=== PATIENT | female | born 1990 | race Caucasian/White ===

== ENCOUNTER → 2021-10-18 | Outpatient (CLI) | payer BC | LOC: COL.RAD 12:27 | DX: Z31.41 Encounter for fertility testing (principal) | CPT/HCPCS: Q9967 ==

== ENCOUNTER 2022-10-23 06:42 | Inpatient (IN) | payer BC ==
[~2022-10-23] VITALS: Ht 152.4 cm; Wt 105.5 kg
[2022-10-23] VITALS (61 sets, daily range): BP systolic 73–194; BP diastolic 32–93; PULSE 78–108; TEMP 97.6–98.3
[~2022-10-23 06:42] MED LIST: MUCINEX 60600 MG/TA1 PO; PNV-SELECT1 TAB PO; TUMS500 MG; TYLENOL 325MG325 MG; ZYRTEC 10MG10 MG PO
--- NOTE | 2022-10-23 06:50 | NUR ---
0650: PT AMBULATORY TO UNIT WITH SPOUSE. PT GOES TO LR6, CHANGES INTO CLEAN GOWN. PT HOOKED UP TO FHR MONITOR/TOCO. PT DENIES ANY LEAKING OF FLUID, VAGINAL BLEEDING, REGULAR CONTRACTIONS, OR DECREASED MOVEMENT. POC DISCUSSED, PT VERBALIZES UNDERSTANDING. CALL LIGHT WITHIN REACH.
[2022-10-23 08:05] LABS: BASO % 0.3 % (0.0-2.0); EOS % 0.3 % (0.0-4.0); GRAN # 5.4 K/mm3 (1.4-6.5); GRAN % 70.2 % (42.2-75.2); HEMOGLOBIN 10.2 g/dl (12.5-16.0); LYMPH # 1.7 K/mm3 (1.2-3.4); LYMPH % 22.5 % (20.0-51.0); MEAN CELL VOLUME 88 fl (80.0-100.0); MEAN CORPUSCULAR HEMOGLOBIN 30 pg (27-31); MEAN CORPUSCULAR HGB CONC 34 g/dl (33.0-37.0); MEAN PLATELET VOLUME 9.9 fl (7.4-10.4); MONO # 0.5 K/mm3 (0.1-0.6); MONO % 6.4 % (1.7-9.3); PLATELET COUNT 202 K/mm3 (130-400); RED BLOOD COUNT 3.44 M/mm3 (4.10-5.30); REDCELL DISTRIBUTION WIDTH-CV 14.2 % (11.5-14.5)
[2022-10-23 08:07] LABS: HEMATOCRIT 30.3 % (37.0-47.0)
[2022-10-23 08:21] LABS: ALBUMIN 2.5 gm/dL (3.5-5.0); BILIRUBIN,TOTAL 0.3 mg/dL (0.2-1.2); CALCIUM 8.6 mg/dL (8.4-10.2); CREATININE, serum 0.79 mg/dL (0.57-1.11); POTASSIUM 3.7 mmol/L (3.5-4.5); TOTAL PROTEIN 5.9 gm/dL (6.2-8.1)
--- NOTE | 2022-10-23 08:30 | NUR ---
0830: DR. MURRIETA AT BEDSIDE WITH PT. BEDSIDE ULTRASOUND COMPLETED, BABY POSITION IS VERTEX. SVE COMPLETED / PER DR. POWER WITH AROM. FHR REVIWED AND POC REVIEWED. PT VERABILZES UNDERSTANDING.
[2022-10-23 10:26] LABS: COLLECTION METHOD CLEAN CATCH
[2022-10-23 10:46] LABS: GRANULAR CAST >12 /lpf (0); MUCOUS Present (NOT PRESENT); URINE BACTERIA None Seen /hpf (NONE SEEN)
[2022-10-23 10:49] LABS: URINE APPEARANCE Clear (CLEAR/HAZY); URINE BLOOD Negative (NEGATIVE); URINE COLOR Yellow (YELLOW); URINE GLUCOSE Negative (NEGATIVE); URINE KETONE Negative (NEGATIVE); URINE NITRATE Negative (NEGATIVE); URINE PROTEIN(semi-quant) 2+ (NEGATIVE); URINE UROBILINOGEN 0.2 (NEGATIVE)
--- NOTE | 2022-10-23 12:35 | NUR ---
1235: DR. POWER AT THE BEDSIDE WITH PT. SVE COMPLETED 2-/-[address] POWER. ELEVATED BLOOD PRESSURES REVIWED. ORDERS FOR MAG GIVEN, POC REVIWED. PT VERABILZES UNDERSTANDING.
--- NOTE | 2022-10-23 17:10 | NUR ---
1710: DR. POWER AT THE BESIDE WITH THE PATIENT. SVE COMPLETED, /-[address] POWER. POC DISCUSSED AND PT VERBALIZES UNDERSTANDING.
--- NOTE | 2022-10-23 18:15 | NUR ---
RCVD REPORT FROM KENIA SAMSON AND KENIA SANDOVAL. PT IS ON MAG AND PITOCIN. BPS ARE STILL ELEVATED. AT THIS TIME THE PATIENT IS REQUESTING AN EPIDURAL. ANDREINA RENEE NOTIFIED AND ON HER WAY.
--- NOTE | 2022-10-23 18:40 | NUR ---
1834: PT SITTING UP ON BEDSIDE. ANDREINA RENEE IN ROOM, PROCEDURE EXPLAINED AND QUESTIONS ASKED AND ANSWERED, PT VERBALIZED UNDERSTANDING. 1840: PT PREPPED AND SS ADMINISTERED. PT TOLERATATED PROCEDURE VERY WELL. DIFFICULTY TRACING HEART TONES DURING PROCEDURE DUE TO MOTHERS POSITIONING AND HABITUS.
--- NOTE | 2022-10-23 20:15 | NUR ---
DIFFICULTY TRACING CONTRACTION PATTERN D/T PATIENT POSITIONING.
[2022-10-24] VITALS (49 sets, daily range): BP systolic 104–161; BP diastolic 54–94; PULSE 78–115; TEMP 97.7–98.2
[2022-10-25 02:43] VITALS: BP 148/85; PULSE 96; TEMP 98.2
[2022-10-25 05:54] LABS: BASO % 0.2 % (0.0-2.0); EOS % 0.2 % (0.0-4.0); GRAN % 73.8 % (42.2-75.2); LYMPH % 16.6 % (20.0-51.0); MEAN CELL VOLUME 88 fl (80.0-100.0); MEAN CORPUSCULAR HGB CONC 33 g/dl (33.0-37.0); MEAN PLATELET VOLUME 10.1 fl (7.4-10.4); MONO # 1.1 K/mm3 (0.1-0.6); MONO % 8.7 % (1.7-9.3); PLATELET COUNT 202 K/mm3 (130-400); RED BLOOD COUNT 3.01 M/mm3 (4.10-5.30); REDCELL DISTRIBUTION WIDTH-CV 14.6 % (11.5-14.5)
[2022-10-25 05:57] LABS: HEMATOCRIT 26.5 % (37.0-47.0); HEMOGLOBIN 8.8 g/dl (12.5-16.0); MEAN CORPUSCULAR HEMOGLOBIN 29 pg (27-31)
[2022-10-25 06:06] LABS: ALBUMIN 1.9 gm/dL (3.5-5.0); BILIRUBIN,TOTAL 0.1 mg/dL (0.2-1.2); CALCIUM 8.2 mg/dL (8.4-10.2); CREATININE, serum 0.74 mg/dL (0.57-1.11); POTASSIUM 4.3 mmol/L (3.5-4.5); TOTAL PROTEIN 4.8 gm/dL (6.2-8.1)
[2022-10-25] MEDS ORDERED: ROXICODONE 55 MG/TAB PO (07:12)
[2022-10-25] MEDS ORDERED: IBU600 MG PO (07:12)
[2022-10-25] MEDS ORDERED: TYLENOL 500MG500 MG PO (07:12)
[2022-10-25 08:39] VITALS: BP 131/81; PULSE 87; TEMP 97.9
[2022-10-25 16:13] VITALS: BP 145/81; PULSE 95; TEMP 97.4
[2022-10-25 21:23] VITALS: BP 137/76; PULSE 97; TEMP 98.6
[2022-10-26 07:30] VITALS: BP 158/81; PULSE 90; TEMP 98
[2022-10-26] MEDS ORDERED: FERROUS SU325 MG/TAB PO (10:40)
[2022-10-26 12:00] VITALS: BP 129/74
--- NOTE | 2022-10-26 13:30 | NUR ---
DISCHARGE TEACHING COMLPETED. EDUCATED ON MAKING 2 WEEK APPOINTMENT AND INSTRUCTED ON PRESCRIPTIONS. QUESTIONS INVITED AND ANSWERED.
== END 2022-10-26 14:10 | disposition home or self-care (01) | DRG 787 ==
LOC: LDR 06:42 → OB 08:23
PROVIDERS: ADMIT Obstetrics & Gynecology
PROC: 10D00Z1 Extraction of Products of Conception, Low, Open Approach (ICD-10-PCS; principal; 2022-10-24)
DX: O13.4 Gestational [pregnancy-induced] hypertension without significant proteinuria, complicating childbirth (principal); D62 Acute posthemorrhagic anemia; O36.63X0 Maternal care for excessive fetal growth, third trimester, not applicable or unspecified; O14.14 Severe pre-eclampsia complicating childbirth; O99.284 Endocrine, nutritional and metabolic diseases complicating childbirth; E28.2 Polycystic ovarian syndrome; D25.9 Leiomyoma of uterus, unspecified; O34.13 Maternal care for benign tumor of corpus uteri, third trimester; K21.9 Gastro-esophageal reflux disease without esophagitis; O90.81 Anemia of the puerperium; O99.62 Diseases of the digestive system complicating childbirth; O99.214 Obesity complicating childbirth; Z3A.39 39 weeks gestation of pregnancy; Z37.0 Single live birth; Z23 Encounter for immunization; Z88.1 Allergy status to other antibiotic agents
CPT/HCPCS: J0171; J0690; J1885; J2401; J2405; J2590; J2704; J2795; J3010; J3475; J7120